=== PATIENT | female | born 1940 | race Caucasian/White ===

== ENCOUNTER 2017-08-12 21:02 | Emergency (ER) | payer OTHER, MEDICARE ==
[~2017-08-12] VITALS: Ht 170.2 cm; Wt 103.7 kg
[~2017-08-12 21:02] MED LIST: ALDACTAZIDE 251 EACH PO; ALDACTONE25 MG PO; AMLODIPINE BESY10 MG PO; ASPIR-TRIN325 M1 PO; ASPIRIN325 MG PO; ATENOLOL50 MG PO; Aldactone PO; Ativan PO; Augmentin PO; CELEBREX200 MG PO; CIPRO500 MG PO; CIPRO750 MG PO; COUMADIN4 MG PO; DIPROSONE 0.05%20 ML TP; Ecotrin PO; FLAGYL500 MG PO; FLAX OIL1000 MG PO; FOLIC ACID1 MG PO; Flaxseed Oil PO; Folvite PO; GLUCOPHAGE1000 MG PO; Glucophage PO; Hydrodiuril,Oretic,E PO; LEVEMIR; LEVEMIR FL100 UNITS/ SC; LORAZEPAM1 MG PO; LORTAB 5-325 M1 EACH PO; LOSARTAN-HCTZ1 EACH PO; LOVASTATIN40 MG PO; Lorazepam PO; METFORMIN HCL1000 M1 PO; METHOTREXATE2.5 MG PO; MEVACOR40 MG PO; NORCO 5/3251 TABLET PO; NOVOLOG PE100 UNITS/ SC; NOVOLOG100 UNIT/1; Norvasc PO; OMEGA-3 EC SOF1 EACH PO; OMEGA-3100 MG PO; PROMETHAZINE HC25 M1 PO; SERTRALINE HCL50 MG PO; SPIRONOLACTONE25 MG PO; Senokot S,Pericolace PO; Tenormin PO; VICODIN,LORT1 TABLET PO; Vicodin,Norco 5/325 PO; Vitamin D, Drisdol PO; WELCHOL625 MG PO; ZOFRAN ODT4 MG PO; ZOFRAN4 MG PO; ZOLOFT50 MG PO; Zoloft PO
[2017-08-13] MEDS ORDERED: PERCOCET 5/31 TABLET PO (01:04)
[2017-08-13 01:27] VITALS: BP 123/80
== END 2017-08-13 01:25 | disposition home or self-care (01) ==
LOC: EME 21:02
DX: S42.291A Other displaced fracture of upper end of right humerus, initial encounter for closed fracture (principal); S00.83XA Contusion of other part of head, initial encounter; W18.30XA Fall on same level, unspecified, initial encounter; E11.9 Type 2 diabetes mellitus without complications; Z79.4 Long term (current) use of insulin; M79.7 Fibromyalgia; I10 Essential (primary) hypertension; J45.909 Unspecified asthma, uncomplicated; F32.9 Major depressive disorder, single episode, unspecified; Z79.82 Long term (current) use of aspirin; F41.9 Anxiety disorder, unspecified; Z88.0 Allergy status to penicillin; Z88.1 Allergy status to other antibiotic agents; Z88.5 Allergy status to narcotic agent; Z87.891 Personal history of nicotine dependence
CPT/HCPCS: 70450; 73030; 73060; 73080; 99281; 99284; J2405; J3010